=== PATIENT | male | born 1965 | race Caucasian/White ===

== ENCOUNTER 2016-07-06 08:06 | Day surgery (SDC) | payer BC, OTHER ==
[2016-06-29 15:20] VITALS: BMI 28.0
[~2016-07-06] VITALS: Ht 180.3 cm; Wt 92.7 kg
[~2016-07-06 08:06] MED LIST: ATROPINE SULFATE 0.1 MG/ML 5ML SYR IV PRN; CEFAZOLIN 2000 MG/60 ML D5W IV SCH; CLR10 PO; EpHEDrine SULFATE INJ 50 MG/ML AMP IV PRN; FENTANYL CITRATE INJ 50 MCG/1 ML 2 ML VIAL IV PRN; FLUT0.15 NAE; HEPARIN SOD 5000 UNIT/0.5 ML CARP SQ SCH; LACTATED RINGER'S 1000ML 1,000 ML IV SCH; ONDANSETRON INJ 2 MG/ML 2 ML VIAL IV PRN; VALA1TAB2 PO
[2016-07-06] MEDS ORDERED: ROCURONIUM BROMIDE 10 MG/ML 5 ML VIAL ONE (08:23)
[2016-07-06] MEDS ORDERED: LIDOCAINE HCL 2% 2 ML VIAL (20MG/ML) ONE (08:23)
[2016-07-06] MEDS ORDERED: ONDANSETRON INJ 2 MG/ML 2 ML VIAL ONE (08:23)
[2016-07-06] MEDS ORDERED: PROPOFOL IV EMULSION 10 MG/ML 20 ML VIAL IV ONE (08:23)
[2016-07-06] MEDS ORDERED: DEXAMETHASONE SOD INJ 4 MG/ML VIAL ONE (08:23)
[2016-07-06] MEDS ORDERED: FENTANYL CITRATE INJ 50 MCG/1 ML 2 ML VIAL ONE (08:24)
[2016-07-06] MEDS ORDERED: MIDAZOLAM HCL 1 MG/ML 2ML VIAL ONE (08:24)
[2016-07-06 08:35] VITALS: BP 123/85; PULSE 65; TEMP 36.7; O2SAT 93; Ht 180.3 cm; Wt 92.7 kg
[2016-07-06 08:52] LABS: BASO % 0.5 %; BASO ABS # 0.02 K/uL (0-0.2); HEMATOCRIT 43.5 % (42-52); IG% 0.2 %; LYMPH % 37.4 %; LYMPH ABS # 1.61 K/uL (1.2-3.4); MEAN CELL VOLUME 89.9 fL (80-100); MEAN CORPUSCULAR HEMOGLOBIN 32.2 pg (25-34); MEAN PLATELET VOLUME 9.1 fL (7.4-10.4); MONO % 9.1 %; NEUT % 48.8 %; PLATELET COUNT 263 K/uL (130-400); RED BLOOD COUNT 4.84 M/uL (4.7-6.1)
[2016-07-06 08:56] LABS: COMPLETE YES; MEAN CORPUSCULAR HGB CONC 35.9 g/dl (32-36)
[2016-07-06] MEDS ORDERED: HYDR-5688 PO (09:28)
--- NOTE | 2016-07-06 09:28 | History & Physical Bridge Note ---
H&P Re-Evaluation Bridge Note: I have examined the patient, reviewed the History & Physical and in the interval since the performance of the History & Physical I have noted the following changes of clinical significance: No changes noted
--- NOTE | 2016-07-06 09:33 | Discharge Instructions ---
Discharge Instructions Admission Reason for Admission: Left Inguinal Hernia Discharge Discharge Diagnosis / Problem: Left inguinal hernia Discharge Goals Goal(s): Decrease discomfort, Improve function Activity Recommendations Activity Limitations: as noted below Lifting Limitations: no more than 5 pounds Exercise/Sports Limitations: until after follow-up appointment May Resume Sexual Activity: after follow-up appointment Shower/Bathe: tomorrow . Instructions / Follow-Up Instructions / Follow-Up Please follow-up with Dr. Pro in the office in 1-2 weeks. Current Hospital Diet Patient's current hospital diet: Discharge Diet Recommended Diet: Regular Diet Pending Studies Studies pending at discharge: no Medical Emergencies . Who to Call and When: Medical Emergencies: If at any time you feel your situation is an emergency, please call 911 immediately. . Non-Emergent Contact Non-Emergency issues call your: Primary Care Provider, Surgeon Call Non-Emergent contact if: temperature is above 101, your pain is not controlled, wound has increased drainage, wound has increased redness . "Provider Documentation" section prepared by Rebeca Almazan. VTE Core Measure Inpt VTE Proph given/why not?: Unfractionated heparin SQ, SCD's
[2016-07-06] MEDS ORDERED: EpHEDrine SULFATE 50MG/5ML SYR ONE (10:03)
[2016-07-06] MEDS ORDERED: BUPIVACAINE/EPINEPHRINE 0.5% MPF 1:200,000 30 ML VIAL ONE (10:23)
[2016-07-06] MEDS ORDERED: NEOSTIGMINE METHYLSULFATE 5 MG/5 ML SYR ONE (10:48)
[2016-07-06] MEDS ORDERED: GLYCOPYRROLATE INJ 0.2 MG/ML VIAL ONE (10:48)
[2016-07-06] MEDS ORDERED: ESMOLOL HCL 10 MG/ML 10 ML VIAL ONE (11:05)
[2016-07-06] MEDS ORDERED: SODIUM CHLORIDE 0.9% 1000ML 1,000 ML IV SCH (11:08)
--- NOTE | 2016-07-06 11:13 | [facility] Operative Report ---
Operative Report Operative Date Jul 06, 2016. Pre-Operative Diagnosis left inguinal hernia Post-Operative Diagnosis large direct /small indirect left inguinal hernia Procedure(s) Performed open left inguinal hernia repair with plug and patch mesh Findings large direct and small indirect left inguinal hernia Anesthesia general Complication(s) None Disposition Recovery Room / PACU I attest to the content of the Intraoperative Record and any orders documented therein. Any exceptions are noted below.
[2016-07-06] MEDS ORDERED: IBUPROFEN 600 MG TAB PO PRN (11:15)
[2016-07-06] MEDS ORDERED: HYDROCODONE/ACETAMOPHEN 5/325MG TAB PO PRN ×2 (11:15)
[2016-07-06] MEDS ORDERED: ONDANSETRON INJ 2 MG/ML 2 ML VIAL IV PRN (11:15)
[2016-07-06] MEDS ORDERED: KETOROLAC TROMETHAMINE 30 MG/ML VIAL IV. PRN (11:15)
--- NOTE | 2016-07-06 11:33 | OPERATIVE REPORT ---
DATE OF OPERATION: 07/06/2016 PREOPERATIVE DIAGNOSIS: Left inguinal hernia. POSTOPERATIVE DIAGNOSIS: Large direct and small indirect left inguinal hernias. PROCEDURES: Open left inguinal hernia repair with plug and patch mesh technique. SURGEON: Dr. Pro. TRIPLE VALVE MECHANIC: Rebeca Almazan PA-C. ESTIMATED BLOOD LOSS: 10 mL COMPLICATIONS: No immediate. ANESTHESIA: General. The patient tolerated the procedure well. OPERATIVE NOTE: After informed consent was obtained, the patient was taken to the operating suite and placed in supine position. After successful intubation, a Melgoza catheter was placed and left groin was shaved and sterilely prepped and draped in usual fashion. Began with a left inguinal incision with a 10 blade scalpel and carried it down through the soft tissue using electrocautery. The external oblique aponeurosis was skeletonized and incised with a fresh 15 blade. This incision was then extended distally through the external ring as well as several centimeters proximally with a Metzenbaum scissors. Once in the inguinal canal, we were able to bluntly dissect the cord and cord structures away from surrounding tissue. I was able to use a blunt finger to elevate the cord structures off the pubic bone and placed a [place] around it. Once we did this, there was a large blowout of the inguinal floor. It was a very large direct defect. When we inspected the cord and cord structures, we also found a small hernia sac, indicating an indirect hernia as well. We were able to dissect this free the whole way back to the neck of the sac, clamped it with a hemostat, and incised it with a Metzenbaum scissors. We tied it off using 3-0 Vicryl and then allowed the stump to retract back down into the abdominal cavity. We then used a plug and patch polypropylene mesh combination. We placed the plug into the large direct defect and secured it medially to the midline musculature and laterally to the shelving portion of Poupart's ligament. This kept the direct defect nicely reduced. We then used a downey-holed polypropylene as an onlay. We secured it distally to Jose G's ligament, laterally along the shelving portion of Poupart's ligament, and medially along the rectus musculature. The "arms" of the mesh were wrapped around behind the cord and cord structures and also secured to underlying muscle. This was all accomplished with 0 Ethibond suture. At the end of the procedure, there was adequate hemostasis. The mesh did not impinge too tightly on the cord structures. I should add at the beginning of the case, we did identify the ilioinguinal nerve and sharply lysed it with the Metzenbaum scissors to prevent future entrapment syndrome. Final irrigation was performed. Some Marcaine was injected around the mesh as well as into the cord structures for postoperative analgesia. The external oblique aponeurosis was reapproximated using 2-0 Vicryl in a running fashion. Soft tissue was irrigated and closed with 3-0 Vicryl and 4-0 Monocryl. Some additional Marcaine was injected around the skin and glue was used as a dressing. The patient was awakened, extubated, and transferred to recovery in stable condition. I attest to the content of the Intraoperative Record and any orders documented therein. Any exceptio ns are noted below.
--- NOTE | 2016-07-06 11:43 | Anesthesiology Progress Note ---
Anesthesia Post Op Note Date & Time Jul 06, 2016 at 11:44 Vital Signs Pain Intensity: 2 Vital Signs Past 12 Hours Date Time Temp Pulse Resp B/P Pulse Ox O2 Delivery O2 Flow Rate FiO2 07/06/16 11:40 85 19 132/75 95 Room Air 07/06/16 11:30 90 15 136/83 94 Room Air 07/06/16 11:20 94 17 135/83 95 Room Air 07/06/16 11:14 36.2 95 20 144/90 96 Room Air 07/06/16 08:35 36.7 65 18 123/85 93 Room Air Notes Mental Status: alert / awake / arousable, participated in evaluation Pt Amnestic to Procedure: Yes Nausea / Vomiting: adequately controlled Pain: adequately controlled Airway Patency, RR, SpO2: stable & adequate BP & HR: stable & adequate Hydration State: stable & adequate Anesthetic Complications: no major complications apparent
[2016-07-06 11:55] VITALS: BP 133/78; PULSE 81; TEMP 36.7; O2SAT 96
[2016-07-06 12:25] VITALS: BP 132/81; PULSE 85; TEMP 36.5; O2SAT 95
[2016-07-06 12:59] VITALS: BP 122/70; PULSE 81; TEMP 36.5; O2SAT 93
== END 2016-07-06 13:04 | disposition home or self-care (01) ==
LOC: C.ACU 08:06
PROVIDERS: ATTEND Surgery
DX: K40.90 Unilateral inguinal hernia, without obstruction or gangrene, not specified as recurrent (principal); Z87.891 Personal history of nicotine dependence